=== PATIENT | male | born 1970 | race Caucasian/White ===

== ENCOUNTER 2020-08-19 11:37 | Emergency (ER) | payer MEDICARE, MEDICAID ==
[~2020-08-19] VITALS: Ht 177.8 cm; Wt 100.9 kg
[~2020-08-19 11:37] MED LIST: ASPIRIN81 MG PO; DIOVAN320 MG PO; PREDNISONE20 MG PO
[2020-08-19 11:41] VITALS: Ht 177.8 cm; Wt 100.9 kg
[2020-08-19] MEDS ORDERED: HYDROCODON-ACE1 EA10 PO (13:03)
[2020-08-19 13:12] VITALS: BP 146/103
== END 2020-08-19 13:13 | disposition home or self-care (01) ==
LOC: D.ER 11:37
DX: L05.01 Pilonidal cyst with abscess (principal); I50.9 Heart failure, unspecified